=== PATIENT | female | born 1960 | race Asian ===

== ENCOUNTER 2019-02-13 18:42 | Emergency (ER) | payer SELFPAY ==
[~2019-02-13] VITALS: Ht 154.9 cm; Wt 54.5 kg
[2019-02-13 19:50] VITALS: BP 151/91
== END 2019-02-13 20:34 | disposition home or self-care (01) ==
LOC: EMS 18:46
DX: H93.11 Tinnitus, right ear (principal); R03.0 Elevated blood-pressure reading, without diagnosis of hypertension